=== PATIENT | male | born 1960 | race African-American/Black ===

== ENCOUNTER → 2017-08-30 | Outpatient (CLI) | payer OTHER ==
[~2017-08-30] MED LIST: LIPITOR10 MG; MOBIC15 MG; NORVASC5 MG; TIZANIDINE HCL4 MG PO
--- NOTE | ~2017-08-30 | 2DMMODE ---
[facility] [place] [place] [address] 2 D/M-MODE ECHOCARDIOGRAM Name: JSTATIANA JORGE Room #: REG [facility]#: [id number] Admission: 08/30/17 Attend Phys: Poncho Mcnulty MD Discharge: Date of : 62 Date of Service: 08/30/17 1537 Report #: [id number] THIS REPORT FOR: //name// APPROVED REPORT Study performed: 08/30/2017 15:06:37 EXAM: Comprehensive 2D, Doppler, and color-flow Echocardiogram Patient Location: Out-Patient Status: routine BSA: 2.12 HR: 75 bpm BP: 157/91 mmHg Rhythm: NSR Other Information Study Quality: Adequate Indications SOB, HTN, HLP 2D Dimensions RVDd: 39.12 mm LVEF(%): 51.44 (>50%) IVSd: 9.68 (7-11mm) LVOT Diam: 22.39 (18-24mm) LVDd: 41.33 mm PWd: 10.29 (7-11mm) Ascending Ao: 32.01 (22-36mm) LVDs: 30.60 (25-40mm) Aortic Root: 38.06 mm Manzano's LVEF: 51.44 % Volumes Left Atrial Volume (Systole) Single Plane 4CH: 40.25 mL Single Plane 2CH: 54.00 mL Aortic Valve AoV Peak Venkatesh.: 1.41 m/s AO Peak Gr.: 7.99 mmHg LVOT Max P.93 mmHg LVOT Max V: 1.22 m/s ALEX Vmax: 3.39 cm2 Mitral Valve E/A Ratio: 0.9 MV Decel. Time: 240.26 ms MV E Max Venkatesh.: 0.53 m/s [facility] [place] [address] [place] [address] 2 D/M-MODE ECHOCARDIOGRAM Name: JSTATIANA TWISP Room #: [facility]#: [id number] Admission: 08/30/17 Attend Phys: Poncho Mcnulty MD Discharge: Date of : 62 Date of Service: 08/30/17 1537 Report #: [id number] MV A Venkatesh.: 0.61 m/s MV PHT: 69.68 ms IVRT: 93.43 ms Pulmonary Valve PV Peak Venkatesh.: 0.81 m/s PV Peak Gr.: 2.62 mmHg Pulmonary Vein P Vein S: 0.51 m/s P Vein A: 0.31 m/s P Vein D: 0.45 m/s P Vein A Dur.: 93.4 msec P Vein S/D Ratio: 1.13 Tricuspid Valve TR Peak Venkatesh.: 1.96 m/s RAP Estimate: 5.00 mmHg TR Peak Gr.: 15.32 mmHg PA Pressure: 20.00 mmHg Left Ventricle The left ventricle is normal size. There is normal LV segmental wall motion. There is normal left ventricular wall thickness. The left ventricular systolic function is normal. LVEF is 50-55%. Mild diastolic dysfunction is present (impaired relaxation pattern). Right Ventricle The right ventricle is normal size. The right ventricular systolic function is normal. Atria The left atrium size is normal. The right atrium size is normal. Aortic Valve The aortic valve is normal in structure. No aortic regurgitation is present. There is no aortic valvular stenosis. Mitral Valve The mitral valve is normal in structure. No mitral regurgitation. No evidence of mitral valve stenosis. Tricuspid Valve The tricuspid valve is normal in structure. Trace tricuspid regurgitation. Estiamated PAP is 20-25mmHg. Pulmonic Valve The pulmonary valve is normal in structure. Trace pulmonic [address] [address] 2 D/M-MODE ECHOCARDIOGRAM Name: TATIANA WEINSTEIN JORGE Room #: REG [facility]#: [id number] Admission: 08/30/17 Attend Phys: Poncho Mcnulty MD Discharge: Date of : 62 Date of Service: 08/30/17 1537 Report #: [id number] regurgitation. Great Vessels The aortic root is normal in size. The ascending aorta is normal in size. IVC is normal in size and collapses >50% with inspiration. Pericardium There is no pericardial effusion. <Conclusion> The left ventricular systolic function is normal. There is normal LV segmental wall motion. LVEF is 50-55%. Mild diastolic dysfunction The aortic valve is normal in structure. No aortic regurgitation or stenosis The mitral valve is normal in structure. No mitral regurgitation. Trace tricuspid regurgitation. Estiamated pulmonary artery pressure is 20-25mmHg. There is no pericardial effusion. <ELECTRONICALLY SIGNED> By: Anthony Cho MD, FACC 08/30/17 1537 [id number] Anthony Cho MD, FACC /INF
== END ==
LOC: CV 10:19
DX: I10 Essential (primary) hypertension (principal); E78.5 Hyperlipidemia, unspecified; M54.9 Dorsalgia, unspecified; G89.29 Other chronic pain; R60.1 Generalized edema

== ENCOUNTER → 2017-09-17 | Outpatient (CLI) | payer OTHER | LOC: RAD 16:28 | DX: R06.00 Dyspnea, unspecified (principal) ==